=== PATIENT | male | born 1940 | race Hispanic/Latino ===

== ENCOUNTER 2018-08-31 05:56 | Day surgery (SDC) | payer OTHER ==
[2018-08-30 10:10] VITALS: BP 124/74
[2018-08-30 10:25] LABS: BASOPHILS % (AUTO) 0.7 % (0.0-5.0); EOSINOPHILS % (AUTO) 3.5 % (0.0-8.0); HEMATOCRIT 46.8 % (42-54); LYMPHOCYTES % (AUTO) 20.1 % (21.0-51.0); MEAN CORPUSCULAR HGB CONC 32.8 g/dL (32.0-36.0); MEAN CORPUSCULAR VOLUME 91.3 fL (79-99); MONOCYTES % (AUTO) 9.7 % (3.0-13.0); NUCLEATED RED BLOOD CELLS 0.1 % (0.0-0.19); PLATELET COUNT (AUTO) 145 K/uL (130-400); RED BLOOD CELL COUNT(AUTO) 5.12 MIL/uL (4.50-6.20); RED CELL DISTRIBUTION WIDTH 13.4 % (11.0-15.5); WHITE BLOOD COUNT (AUTO) 6.4 K/uL (4.8-10.8)
[2018-08-30 10:32] LABS: POTASSIUM 4.1 mmol/L (3.5-5.1)
[2018-08-30 10:39] LABS: INR 1.09 (0.85-1.15); PARTIAL THROMBOPLASTIN TIME 28.2 SEC (26.3-35.5); PROTHROMBIN TIME 11.4 SEC (9.6-11.6)
[2018-08-31] VITALS (11 sets, daily range): BP systolic 105–136; BP diastolic 38–76
[~2018-08-31] VITALS: Ht 170.2 cm; Wt 79.7 kg
[~2018-08-31 05:56] MED LIST: AEC81 PO; ATOR40TA71 PO; CARV3.12 PO; CEFAZOLIN SODIUM 1 GM VIAL IVP SCH; CLOP75TA32 PO; DIAZEPAM 5 MG TABLET PO PRN; DIPHENHYDRAMINE HCL 25 MG CAPSULE PO PRN; DiphenhydrAMINE HCL 50 MG/ML VIAL IVP PRN; ENAL2.5T PO; SODIUM CHLORIDE 0.9% 1000ML 1,000 ML IV SCH
[2018-08-31] MEDS ORDERED: BUPIVACAINE/PF 0.25% 30ML VIAL IJ ONE (07:30)
[2018-08-31] MEDS ORDERED: LIDOCAINE HCL 1% MDV 50ML VIAL ONE (07:31)
[2018-08-31] MEDS ORDERED: CEFAZOLIN SODIUM 1 GM VIAL ONE (07:31)
[2018-08-31] MEDS ORDERED: MEPERIDINE-PF 25 MG/ML SYG ONE ×4 (07:57→08:51)
[2018-08-31] MEDS ORDERED: MIDAZOLAM HCL 1 MG/ML 2ML VIAL ONE ×4 (07:57→08:51)
[2018-08-31] MEDS ORDERED: ACETAMINOPHEN 325 MG TAB PO PRN ×2 (09:30)
[2018-08-31] MEDS ORDERED: ONDANSETRON HCL 4 MG/2 ML VIAL IV PRN (09:30)
[2018-08-31] MEDS ORDERED: ACETAMINOPHEN-CODEINE 300/30MG TAB PO PRN ×2 (09:30)
[2018-08-31] MEDS ORDERED: CEFAZOLIN SODIUM 1 GM VIAL IVP SCH (14:00)
== END 2018-08-31 14:45 | disposition home or self-care (01) ==
LOC: DAH 05:56
PROVIDERS: ATTEND Internal Medicine Cardiovascular Disease
DX: I25.5 Ischemic cardiomyopathy (principal); I25.10 Atherosclerotic heart disease of native coronary artery without angina pectoris; I21.3 ST elevation (STEMI) myocardial infarction of unspecified site; Z95.5 Presence of coronary angioplasty implant and graft; E78.5 Hyperlipidemia, unspecified; Z79.899 Other long term (current) drug therapy; Z98.890 Other specified postprocedural states; I11.0 Hypertensive heart disease with heart failure; I50.42 Chronic combined systolic (congestive) and diastolic (congestive) heart failure
CPT/HCPCS: 33264; 36415; 80048; 82948 ×2; 85025; 85610; 85730; 93005; A4218; A4606; C1882; J0690 ×2; J2175 ×3; J2250 ×3; J3490 ×2; J7030; 99156; 99157

== ENCOUNTER → 2020-11-05 | Outpatient (CLI) | payer OTHER ==
[~2020-11-05] MED LIST changes: -CEFAZOLIN SODIUM 1 GM VIAL IVP SCH; -DIAZEPAM 5 MG TABLET PO PRN; -DIPHENHYDRAMINE HCL 25 MG CAPSULE PO PRN; -DiphenhydrAMINE HCL 50 MG/ML VIAL IVP PRN; -ENAL2.5T PO; +ENAL2.5T16 PO; -SODIUM CHLORIDE 0.9% 1000ML 1,000 ML IV SCH
== END | disposition home or self-care (01) ==
LOC: SHCH 11:48
PROVIDERS: ATTEND Internal Medicine Cardiovascular Disease
DX: I25.5 Ischemic cardiomyopathy (principal)
CPT/HCPCS: 93306; 93356